=== PATIENT | female | born 1950 | race Caucasian/White ===

== ENCOUNTER → 2017-03-08 | Outpatient (CLI) | payer OTHER ==
[2017-03-08 15:18] LABS: BLOOD UREA NITROGEN 17 mg/dl (7-18); BUN/CREATININE RATIO 19.2 (10-20); CARBON DIOXIDE 25 mmol/L (21-32); CHLORIDE 107 mmol/L (98-107); GLUCOSE 85 mg/dl (70-99); POTASSIUM 4.3 mmol/L (3.5-5.1); SODIUM 139 mmol/L (136-145)
[2017-03-08 15:19] LABS: CALCIUM 9.9 mg/dl (8.5-10.1)
[2017-03-08 15:22] LABS: CHOLESTEROL 187 mg/dl (0-200); CHOLESTEROL/HDL RATIO 4.3; HDL CHOLESTEROL 43 mg/dl; LDL CHOLESTEROL CALCULATED 113 mg/dl; TRIGLYCERIDES 153 mg/dl (0-150); VERY LOW DENSITY LIPOPROT CALC 31 mg/dl
== END | disposition home or self-care (01) ==
LOC: C.LABPVFM 10:25
PROVIDERS: ATTEND Nurse Practitioner
DX: Z13.1 Encounter for screening for diabetes mellitus (principal); Z13.220 Encounter for screening for lipoid disorders; Z11.59 Encounter for screening for other viral diseases

== ENCOUNTER → 2017-07-20 | Outpatient (CLI) | payer OTHER ==
--- NOTE | 2017-07-21 07:50 | MAMMOGRAPHY REPORT ---
BILATERAL DIGITAL SCREENING MAMMOGRAM TOMOSYNTHESIS WITH CAD: 07/20/2017 CLINICAL HISTORY: Routine screening. Patient has no complaints. TECHNIQUE: Breast tomosynthesis in addition to standard 2D mammography was performed. Current study was also evaluated with a Computer Aided Detection (CAD) system. COMPARISON: No prior exams were available for comparison. BREAST COMPOSITION: There are scattered areas of fibroglandular density in both breasts. FINDINGS: No suspicious mass, architectural distortion or cluster of microcalcifications is seen. IMPRESSION: ACR BI-RADS CATEGORY 1: NEGATIVE There is no mammographic evidence of malignancy. Prior outside mammograms are being requested and if obtained, they will be reviewed, compared to the current exam to assess for any more subtle changes, and an addendum will be made to this report. Otherwise a 1 year screening mammogram is recommended. The patient will receive written notification of the results. Approximately 10% of breast cancers are not detected with mammography. A negative mammographic report should not delay biopsy if a clinically suggestive mass is present. Devika Castro M.D. ay/:07/20/2017 16:27:37 [employer] Supervisor: Zayra COLON(Lise)(Wendy), [facility] letter sent: Normal 1/2 BI-RADS Code: ACR BI-RADS Category 1: Negative
== END | disposition home or self-care (01) ==
LOC: C.MAMM 14:30
PROVIDERS: ATTEND Nurse Practitioner
DX: Z12.31 Encounter for screening mammogram for malignant neoplasm of breast (principal)

== ENCOUNTER → 2017-11-14 | Day surgery (SDC) | payer OTHER ==
[2017-11-07 14:48] VITALS: Ht 166.4 cm; Wt 77.3 kg
[~2017-11-14] VITALS: Ht 166.4 cm; Wt 77.3 kg
[~2017-11-14] MED LIST: B-COTAB18 PO; CETI10TA84 PO; CHOL100010 PO; COEN1CAP7 PO; LIDOCAINE HCL 2% 2 ML VIAL (20MG/ML) ONE; MINO100C22 PO; OMEG10007 PO; PROPOFOL IV EMULSION 10 MG/ML 20 ML VIAL IV ONE; SODIUM CHLORIDE 0.9% 500ML 500 ML IV ONE
--- NOTE | 2017-11-14 11:15 | Endo History and Physical ---
History & Physical Date of Service: Nov 14, 2017. Chief Complaint: Screening Referring Physician: Roseline Anthony History of Present Illness 67 yo CF who presents for screening colonoscopy. Past Surgical History Hx Cardiac Surgery: No Hx Internal Defibrillator: No Hx Pacemaker: No Hx Abdominal Surgery: Yes (RINA BSO) Hx of Implantable Prosthesis: No Hx Post-Op Nausea and Vomiting: No Hx Cancer Surgery: No Hx Thoracic Surgery: No Hx Orthopedic: Yes (LUMBAR DISCECTOMY) Hx Urinary Tract Surgery: No Family History IBD Social History Smoking Status: Former Smoker Hx Substance Use: No Hx Alcohol Use: No Allergies Coded Allergies: Adhesives (Verified Allergy, Unknown, SKIN IRRITATION, 11/07/17) Penicillins (Verified Allergy, Unknown, UKNOWN, A CHILD, 11/07/17) Sulfa Antibiotics (Verified Allergy, Unknown, RASH/HIVES, 11/07/17) Current Medications Reported Home Medications Medications Dose Route/Sig Max Daily Dose Days Date Category Coq10 (Coenzyme Q10 (Ubidecarenone)) 200 Mg Cap 1 Cap PO QAM 11/07/17 Reported Zyrtec (Cetirizine HCl) 10 Mg Tab 10 Mg PO QAM 11/07/17 Reported Vitamin D (Cholecalciferol) 1,000 Unit Tab 1 Tab PO Q2D 11/07/17 Reported Vitamin B Complex (B-Complex Vitamins) 1 Tab Tab 1 Tab PO Q2D 11/07/17 Reported [place]-3 (Fish Oil) 1 Ea Cap 2 Cap PO Q2D 11/07/17 Reported Minocin (Minocycline HCl) 100 Mg Cap 100 Mg PO Q2D 11/07/17 Reported Vital Signs Weight (Kilograms): 77.27 Height (Feet): 5 Height (Inches): 5.5 Date Time Temp Pulse Resp B/P (MAP) Pulse Ox O2 Delivery O2 Flow Rate FiO2 11/14/17 10:56 36.5 64 16 132/74 (93) 95 Room Air Physical Exam General Appearance: WD/WN, no apparent distress Respiratory/Chest: Auscultation: breath sounds normal Cardiovascular: Heart Auscultation: RRR Abdomen: Bowel Sounds: normal Inspection & Palpation: soft, non-distended, no tenderness, guarding & rebound Assessment and Plan Assessment: 67 yo CF who presents for screening colonoscopy. Plan: Proceed with colonoscopy.
--- NOTE | 2017-11-14 12:19 | Discharge Instructions ---
Endoscopy Patient Instructions Date / Procedure(s) Performed Nov 14, 2017. Colonoscopy Allergy Information Coded Allergies: Adhesives (Verified Allergy, Unknown, SKIN IRRITATION, 11/07/17) Penicillins (Verified Allergy, Unknown, UKNOWN, A CHILD, 11/07/17) Sulfa Antibiotics (Verified Allergy, Unknown, RASH/HIVES, 11/07/17) Discharge Date / Findings Nov 14, 2017. Rectal polyp Diverticulosis Internal hemorrhoids Medication Instructions OK to resume all medications as prescribed Reported Home Medications Medications Dose Route/Sig Max Daily Dose Days Date Category Coq10 (Coenzyme Q10 (Ubidecarenone)) 200 Mg Cap 1 Cap PO QAM 11/07/17 Reported Zyrtec (Cetirizine HCl) 10 Mg Tab 10 Mg PO QAM 11/07/17 Reported Vitamin D (Cholecalciferol) 1,000 Unit Tab 1 Tab PO Q2D 11/07/17 Reported Vitamin B Complex (B-Complex Vitamins) 1 Tab Tab 1 Tab PO Q2D 11/07/17 Reported [place]-3 (Fish Oil) 1 Ea Cap 2 Cap PO Q2D 11/07/17 Reported Minocin (Minocycline HCl) 100 Mg Cap 100 Mg PO Q2D 11/07/17 Reported Provider Instructions Activity Restrictions - No exercising or heavy lifting for 24 hours. - Do not drink alcohol the day of the procedure. - Do not drive a car or operate machinery until the day after the procedure. - Do not make any important decisions or sign important papers in 24 hours after the procedure. Following Day: - Return to full activity which may include returning to work/school. Diet Start your diet with liquids and light foods (jello, soup, juice, toast). Then eat your usual diet if not nauseated. Treatment For Common After Affects For mild abdominal pain, bloating, or excessive gas: - Rest - Eat lightly - Lie on right side Follow-Up Information Follow-up with Roseline Anthony as scheduled Anesthesia Information What You Should Know You have had a procedure that required some medicine to reduce anxiety and discomfort. This treatment is called moderate sedation. After receiving the treatment, you may be sleepy, but you will be able to breathe on your own. The effects of the treatment may last for several hours. Follow these instructions along with Activity/Diet recommendations noted above: * Do NOT do anything where dizziness or clumsiness would be dangerous. * Rest quietly at home today, then you can be up and about tomorrow. * Have a responsible person stay with you the rest of today. * You may have had an I.V. today. If so, you may take the dressing off later today. Recommendations Call your doctor if: * Trouble breathing * Continuous vomiting for more than 24 hours * Temperature above 101 degrees * Severe abdominal pain or bloating * Pain not relieved by pain medicine ordered * There is increased drainage or redness from any incision * A large amount of rectal bleeding greater than 2-3 tablespoons. (If you had a polyp/s removed or have hemorrhoids, a small amount of blood - from the rectum is to be expected.) * You have any unanswered questions or concerns. IN THE EVENT OF A SERIOUS EMERGENCY, GO TO THE NEAREST EMERGENCY ROOM Your discharge instructions were prepared by provider Gurjit Conde. Patient Instructions Signature Page Shannan Sims Patient (or Guardian) Signature/Date: I have read and understand the instructions given to me by my caregivers. Caregiver/RN/Doctor Signature/Date: The above-named patient and/or guardian has received patient instructions on this date. + Original Patient Signature Page (only) stays with chart. Please make copy for patient.
--- NOTE | 2017-11-14 12:25 | GI REPORT ---
Procedure Date: 11/14/2017 11:26 AM Procedure: Colonoscopy Indications: Screening for colorectal malignant neoplasm Medicines: Monitored Anesthesia Care Complications: No immediate complications. Estimated Blood Loss: Estimated blood loss: none. Procedure: Pre-Anesthesia Assessment: - Prior to the procedure, a History and Physical was performed, and patient medications and allergies were reviewed. The patient's tolerance of previous anesthesia was also reviewed. The risks and benefits of the procedure and the sedation options and risks were discussed with the patient. All questions were answered, and informed consent was obtained. Prior Anticoagulants: The patient has taken no previous anticoagulant or antiplatelet agents. ASA Grade Assessment: II - A patient with mild systemic disease. After reviewing the risks and benefits, the patient was deemed in satisfactory condition to undergo the procedure. After I obtained informed consent, the scope was passed under direct vision. Throughout the procedure, the patient's blood pressure, pulse, and oxygen saturations were monitored continuously. The scope was introduced through the anus and advanced to the cecum, identified by appendiceal orifice and ileocecal valve. The colonoscopy was technically difficult and complex due to significant looping. Successful completion of the procedure was aided by changing the patient to a supine position and using manual pressure. The patient tolerated the procedure well. The quality of the bowel preparation was good. The ileocecal valve and the appendiceal orifice were photographed. Findings: The perianal and digital rectal examinations were normal. A 10 mm polyp was found in the rectum. The polyp was sessile. The polyp was removed with a hot snare. Resection and retrieval were complete. Multiple small-mouthed diverticula were found in the sigmoid colon. Non-bleeding internal hemorrhoids were found during retroflexion. The hemorrhoids were small. Impression: - One 10 mm polyp in the rectum, removed with a hot snare. Resected and retrieved. - Diverticulosis in the sigmoid colon. - Non-bleeding internal hemorrhoids. Recommendation: - Resume previous diet. - Continue present medications. - Repeat colonoscopy for surveillance based on pathology results. - Return to primary care physician as previously scheduled. Gurjit Conde DO 11/14/2017 12:25:06 PM This report has been signed electronically. Note Initiated On: 11/14/2017 11:26 AM I attest to the content of the Intraoperative Record and orders documented therein, exceptions below
[2017-11-14 12:51] VITALS: BP 101/46; PULSE 65; O2SAT 99
--- NOTE | 2017-11-14 13:07 | Anesthesiology Progress Note ---
Anesthesia Post Op Note Date & Time Nov 14, 2017 at 13:07 Vital Signs Pain Intensity: 0 Vital Signs Past 12 Hours Date Time Temp Pulse Resp B/P (MAP) Pulse Ox O2 Delivery O2 Flow Rate FiO2 11/14/17 12:51 65 16 101/46 (64) 99 Room Air 11/14/17 12:36 64 16 110/54 (72) 99 Room Air 11/14/17 12:21 78 16 101/48 (65) 96 Room Air 11/14/17 10:56 36.5 64 16 132/74 (93) 95 Room Air Notes Mental Status: alert / awake / arousable, participated in evaluation Pt Amnestic to Procedure: Yes Nausea / Vomiting: adequately controlled Pain: adequately controlled Airway Patency, RR, SpO2: stable & adequate BP & HR: stable & adequate Hydration State: stable & adequate Anesthetic Complications: no major complications apparent
== END | disposition home or self-care (01) ==
LOC: C.GI 10:30
PROVIDERS: ATTEND Internal Medicine
DX: Z12.11 Encounter for screening for malignant neoplasm of colon (principal); D12.8 Benign neoplasm of rectum; K57.30 Diverticulosis of large intestine without perforation or abscess without bleeding; K64.8 Other hemorrhoids; Z88.0 Allergy status to penicillin; Z88.2 Allergy status to sulfonamides; Z86.73 Personal history of transient ischemic attack (TIA), and cerebral infarction without residual deficits; Z90.710 Acquired absence of both cervix and uterus; Z90.722 Acquired absence of ovaries, bilateral; Z90.79 Acquired absence of other genital organ(s); Z87.891 Personal history of nicotine dependence

== ENCOUNTER 2022-03-30 09:33 | Observation (INO) ==
--- NOTE | 2022-02-18 15:03 | PAT Medication Instructions ---
Medication Instructions Date of Service February 18, 2022 Home Medications Medication Instructions Recorded minocycline 100 mg capsule See Rx Instructions .ROUTE 12/25/21 .COMPLEX #30 capsule omega-3 fatty acids-fish oil 360 mg-1,200 mg capsule (Fish Oil) 2 cap PO Q2D vitamin B complex (B Complex-Vitamin B12) 1 tab PO Q OTHER DAY cholecalciferol (vitamin D3) 125 mcg (5,000 unit) capsule 5,000 units PO .COMPLEX cetirizine 10 mg tablet (Zyrtec) 10 mg PO QAM coenzyme Q10 200 mg capsule 200 mg PO .COMPLEX minocycline 100 mg capsule See Rx Instructions .ROUTE .COMPLEX acetaminophen 500 mg tablet 500 mg PO BID PRN ibuprofen 200 mg tablet (Advil) 200 mg PO BID PRN ASK your surgeon for instructions ibuprofen 200 mg tablet (Advil) 200 mg PO BID PRN STOP taking 2 weeks before surgery (or as soon as possible if surgery is within 2 weeks) omega-3 fatty acids-fish oil 360 mg-1,200 mg capsule (Fish Oil) 2 cap PO Q2D coenzyme Q10 200 mg capsule 200 mg PO .COMPLEX DO NOT take the morning of surgery vitamin B complex (B Complex-Vitamin B12) 1 tab PO Q OTHER DAY cholecalciferol (vitamin D3) 125 mcg (5,000 unit) capsule 5,000 units PO .COMPLEX cetirizine 10 mg tablet (Zyrtec) 10 mg PO QAM Take morning of surgery With a small sip of water, OTHERWISE NOTHING TO EAT OR DRINK AFTER MIDNIGHT: minocycline 100 mg capsule See Rx Instructions .ROUTE .COMPLEX acetaminophen 500 mg tablet 500 mg PO BID PRN (if needed) Take evening before surgery acetaminophen 500 mg tablet 500 mg PO BID PRN (if needed) Other Notes If you have any questions please call us at [phone] or [phone] or [phone] or [phone]
--- NOTE | 2022-02-22 09:16 | Anesthesiology Consultation ---
Date of Service February 22, 2022 Assessment & Plan (1) Encounter for pre-operative examination: - COVID PCR test discussed with pt-she is interested in testing today. If positive, will not need additional pre-op COVID test per policy and if negative- will need pre-op COVID testing 2-4 days prior to surgery. Testing negative, pre- op COVID test will need done. Pt aware. - COVID screening: Per assessment on 02/22/2022: Travel screen negative, no known COVID-19 positive contacts or current COVID-19 related symptoms in past 2 weeks. Pt vaccinated. Surgeon arranging preop COVID testing, scheduled 03/05/2022. Awaiting results. Chart Review Chart Review: Acceptable Risk for Surgery and Patient seen in Pre Admission Testing Teaching & Discussion Pre-Anesthesia Teaching/Discussion Notes: Instructed NPO after midnight before surgery, except medications with 15 cc of water. Medication instructions provided according to the PAT guidelines. History Surgery Operation Date: 03/09/22 10:40 Proposed Procedures p Right Total Knee Arthroplasty - Abraham Hammond MD Height/Weight Height: 5 ft 6 in Weight: 81.6 kg Allergies Allergy/AdvReac Type Severity Reaction Status Date / Time Sulfa (Sulfonamide Allergy Intermediate RASH/HIVES Verified 02/18/22 12:18 Antibiotics) adhesive Allergy Mild SKIN Verified 02/18/22 12:18 IRRITATION Penicillins Allergy Mild UKNOWN, Verified 02/18/22 12:18 A CHILD Medications Home Medications Medication Instructions Recorded Confirmed Last Taken omega-3 fatty acids-fish oil 360 2 cap PO Q2D cap 07/26/19 02/18/22 05/02/21 mg-1,200 mg capsule (Fish Oil) vitamin B complex (B 1 tab PO Q OTHER DAY 07/26/19 02/18/22 05/02/21 Complex-Vitamin B12) cholecalciferol (vitamin D3) 125 5,000 units PO .COMPLEX 07/30/19 02/18/22 05/02/21 mcg (5,000 unit) capsule cetirizine 10 mg tablet (Zyrtec) 10 mg PO QAM tab 11/25/20 02/18/22 05/03/21 coenzyme Q10 200 mg capsule 200 mg PO .COMPLEX 11/25/20 02/18/22 05/02/21 minocycline 100 mg capsule See Rx Instructions .ROUTE 12/25/21 02/18/22 Unknown .COMPLEX #30 capsule acetaminophen 500 mg tablet 500 mg PO BID PRN 02/18/22 02/18/22 Unknown ibuprofen 200 mg tablet (Advil) 200 mg PO BID PRN 02/18/22 02/18/22 Unknown Past Medical History Medical History (Updated 02/22/22 @ 09:39 by Joanna oRjo PA-C) History of COVID-19 12/2021-symptoms were similar to seasonal allergies and self-resolved. 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 Exercise / Class Metabolic Activity III < 4 Walking/Shop/Light housework (denies CP or SOB) Past Family History Family History Grandmother (Paternal) Colorectal cancer Brother Myocardial infarction Grandfather (Maternal) Myocardial infarction Father Diabetes Mother Alzheimer disease Other No family history of adverse response to anesthesia Denies family history of Ovarian cancer Prostate cancer Breast cancer Past Surgical History Surgical History H/O hysterectomy with oophorectomy History of colonoscopy History of laparoscopy History of tonsillectomy History of wisdom tooth extraction Previous back surgery Past Anesthesia History No Hx of Anesthesia Complications and No Family Hx of Anesthesia Complications History of PONV No Hx of PONV and No Hx of Motion Sickness Social History Smoking Status: Never smoker Do You Dip or Chew Tobacco: No Hx Alcohol Use: No Hx Substance Use: No substance use type: does not use Review of Systems Patient denies chest pain, shortness of breath, dyspnea on exertion, snoring, witnessed apneas, reflux, fever, chills, cough, wheezing, or palpitations. Physical Exam Vital Signs Vitals BP 124/78 P 75 TEMP 98.7 SP02 98% on RA RESP 17 Physical Full cervical extension range of motion without pain TMD 3.5 finger breaths Mallampati Score 2 Dentition: intact, several missing teeth, chipped right upper back, several crowns-none in front; denies implants or bridges, loose teeth Lungs: normal respiratory effort. Clear throughout to auscultation, no ad ventitious breath sounds Cardiac: regular rate and rhythm, no murmurs noted Carotid arteries: negative bruit bilat Lab Results Anesthesia Preop Results Results Anesthesia Widget: WBC 6.74 K/uL (4.8-10.8) 02/22/22 Hgb 13.1 g/dL (12.0-16.0) 02/22/22 Hct 38.9 % (37-47) 02/22/22 Plt 462 K/uL (130-400) H 02/22/22 Na 139 mmol/L (136-145) 02/22/22 K 4.4 mmol/L (3.5-5.1) 02/22/22 Cl 105 mmol/L (98-107) 02/22/22 CO2 27 mmol/L (21-32) 02/22/22 BUN 22 mg/dl (6-23) 02/22/22 Creat 0.89 mg/dl (0.6-1.2) 02/22/22 Glucose Level 84 mg/dl (70-99(Fasting)) 02/22/22 PT 10.4 Seconds (9.0-12.0) 02/22/22 PTT 29.8 Seconds (21.0-31.0) 02/22/22 INR 1.0 (0.9-1.1) 02/22/22 Blood Type A Positive 02/22/22 Antibody Screen NEGATIVE 02/22/22 Testing Electrocardiogram Date: 02/22/22 NSR, rate 69 bpm Chest X-Ray Date: 02/22/22 Frontal and lateral radiographs of the chest demonstrate the cardiomediastinal silhouette to be within normal limits. The lungs are clear of alveolar opacities . There is no evidence for effusion bilaterally. There is no evidence for vascular congestion. There is no acute osseous pathology. IMPRESSION: 1. No acute cardiopulmonary disease.
--- NOTE | 2022-03-27 17:20 | History and Physical Report ---
CHIEF COMPLAINT: Right knee pain. HISTORY OF PRESENT ILLNESS: The patient is a 71-year-old female referred by my partner, Dr. Garg for surgical treatment of her right knee. She has got a long history of right knee pain and discomfort describes it has gotten worse over time. She has been through extensive conservative treatment including injections, which have become less successful over time. The last shot helped for about 3-4 weeks and that is it. She describes global pain in her knee. It is increased with weightbearing. She said it is affecting her ability to ambulate, walk and be active. She has been through some therapy, which helped a little bit, but she continues to be limited by pain. She would like to have her knee fixed. She had been previously scheduled, but tested positive for COVID. She has now recovered. She would like to proceed with knee surgery. PAST MEDICAL HISTORY: Significant for: 1. Mini stroke in 1971, on control with some slight residual vision issues only. 2. History of smoking, but quit in 2012. PAST SURGICAL HISTORY: Includes: 1. Hysterectomy. 2. Disk surgery from her back. ALLERGIES: PENICILLIN, REACTION UNKNOWN. ALSO, DESCRIBES ALLERGIES TO SULFA. CURRENT MEDICATIONS: Include: 1. Minocycline. 2. Unspecified Med 3. Fish oil. 4. Zyrtec. 5. Tylenol. SOCIAL HISTORY: A 71-year-old female. Does not smoke. No alcohol intake. FAMILY HISTORY: Noncontributory. REVIEW OF SYSTEMS: Negative for diabetes, neurologic problem, vascular problem, or bleeding disorders. No chest pain or shortness of breath. No history of DVT or PE. PHYSICAL EXAMINATION: GENERAL: Shows a pleasant middle-aged male. Looks to be in pretty good health. HEENT: Benign. NECK: Supple. No lymphadenopathy. LUNGS: Clear to auscultation. HEART: Regular rate and rhythm. ABDOMEN: Soft, nontender, nondistended. EXTREMITIES: Grossly neurovascularly intact except as follows. Examination of the right knee reveals the patient walks with a slightly antalgic gait. She has got fairly neutral to slight varus alignment through her knees. She is tender over the medial joint line. Small knee effusion. Range of motion is 5-125. No instability. Good straight leg raise. X-RAYS: X-rays of the right knee reviewed. It shows advanced right knee medial compartment DJD. She has complete loss of her medial joint space. She has got some chondrocalcinosis and subchondral sclerosis. ASSESSMENT: A 71-year-old female with advanced right knee medial compartment degenerative disk disease and chondrocalcinosis. She has failed conservative treatment. She would like to have her right knee replaced. She does have a history of a transient ischemic attack and mini stroke in the past with minimal symptoms of sensation issues. She has got no known clotting disorders. PLAN: We are going to take her to the operating room and do right total knee replacement. Risks and benefits of this procedure were explained to the patient, include but not limited to DVT, PE, , infection, neurological injury, vascular injury, bleeding problem, pain, limited range of motion, stiffness, failure to relieve symptoms, etc. The patient understands and desires to proceed. Informed consent was obtained. She is planning on being discharged to home using [facility] program. Job ID: [id number] [facility]
[~2022-03-30 09:33] MED LIST changes: +ACETAMINOPHEN 500 MG TAB PO SCH; +ALLERGY Noted to ORDERED Medication SCH; -B-COTAB18 PO; +BUPIVACAINE LIPOSOME/PF 266 MG, BUPIVACAINE/EPINEPHRINE 50 ML, SODIUM CHLORIDE 0.9% 30 ... INFIL SCH; -CETI10TA84 PO; -CHOL100010 PO; -COEN1CAP7 PO; +CeleBREX 200 MG CAP PO SCH; +FAMOTIDINE 20 MG TAB PO SCH; +GABAPENTIN 300 MG CAP PO SCH; -LIDOCAINE HCL 2% 2 ML VIAL (20MG/ML) ONE; +LR 500ML BOLUS, THEN 15ML/HR IV SCH; +LR 60ML/HR IV SCH; +METOCLOPRAMIDE HCL 10 MG TABLET PO SCH; -MINO100C22 PO; -OMEG10007 PO; -PROPOFOL IV EMULSION 10 MG/ML 20 ML VIAL IV ONE; -SODIUM CHLORIDE 0.9% 500ML 500 ML IV ONE; +TRANEXAMIC ACID 1,000 MG **IV Intra-op IV SCH; +ceFAZolin 2000MG 2,000 MG/15 ML SYR IV SCH
[2022-03-30] MEDS ORDERED: BUPIVACAINE 0.25% 30 ML VIAL ONE (11:24)
[2022-03-30] MEDS ORDERED: DEXAMETHASONE SOD INJ 4 MG/ML VIAL ONE ×2 (11:24→13:41)
[2022-03-30] MEDS ORDERED: EPINEPHrine INJ 1 MG/ML AMP ONE (11:24)
[2022-03-30] MEDS ORDERED: BUPIVACAINE 0.5 % 5 MG/1 ML PF 10ML VIAL ONE (11:24)
--- NOTE | 2022-03-30 11:39 | History & Physical Bridge Note ---
Date of Service March 30, 2022 History & Physical Bridge Note I have examined the patient, reviewed the History & Physical and in the interval since the performance of the History & Physical I have noted the following changes of clinical significance: no changes noted
[2022-03-30] MEDS ORDERED: MIDAZOLAM HCL 1 MG/ML 2ML VIAL ONE (12:08)
[2022-03-30] MEDS ORDERED: fentaNYL citrate 100 MCG/2 ML VIAL ONE (12:08)
[2022-03-30] MEDS ORDERED: SODIUM CHLORIDE 0.9% PF 50 ML VIAL ONE (12:34)
[2022-03-30] MEDS ORDERED: BUPIVACAINE/EPINEPHRINE 0.25% 1:200,000 30 ML VIAL ONE (12:34)
[2022-03-30] MEDS ORDERED: BUPIVACAINE LIPOSOME 1.3% 266 MG/20 ML VIAL ONE (12:35)
[2022-03-30] MEDS ORDERED: KETAMINE 50 MG/5 ML SYRINGE ONE (13:33)
[2022-03-30] MEDS ORDERED: ATROPINE SULFATE 0.1 MG/ML 10ML SYR IV PRN (13:38)
[2022-03-30] MEDS ORDERED: ePHEDrine sulfate 50 MG/ML AMP IV PRN (13:38)
[2022-03-30] MEDS ORDERED: fentaNYL citrate 100 MCG/2 ML VIAL IV PRN (13:38)
[2022-03-30] MEDS ORDERED: ONDANSETRON INJ 2 MG/ML 2 ML VIAL IV PRN ×2 (13:38→17:37)
[2022-03-30] MEDS ORDERED: PROPOFOL IV EMULSION 10 MG/ML 20 ML VIAL IV ONE (13:41)
[2022-03-30] MEDS ORDERED: ONDANSETRON INJ 2 MG/ML 2 ML VIAL ONE (13:41)
[2022-03-30] MEDS ORDERED: GLYCOPYRROLATE 0.2 MG/ML VIAL ONE (13:41)
[2022-03-30] MEDS ORDERED: LIDOCAINE 2% MPF LOCAL 5 ML VIAL INFIL ONE (13:41)
[2022-03-30] MEDS ORDERED: PHENYLEPHRINE 100MCG/ML 5ML SYR ONE (14:25)
--- NOTE | 2022-03-30 15:33 | Operative Report ---
PG Post Operative Report Pre & Post Diagnosis Operation Date: 03/30/22 12:30 Pre-Op Diagnosis: Osteoarthrisis knee right. Post-Op Diagnosis: Osteoarthrisis knee right. I identified the patient and participated in the time-out.: Yes Procedure Operation Date: 03/30/22 12:30 Actual Procedures p Right Total Knee Arthroplasty(Right) - Abraham Hammond MD Surgeon Abraham Hammond MD Rn Er Morgan Myers PA-C Estimated Blood Loss 50 Findings Consistent with Post-Op Diagnosis Operative findings were advanced right knee medial compartment DJD with full- thickness cartilage loss and eburnation medial femoral condyle medial tibial plateau. She had very dark staining to the surface of her exposed bone. Specimens Right knee sent for pathology Anesthesia Type Spinal MAC Complications none Disposition Accompanied Patient To Recovery: No Indications Patient is a 71-year-old female is had a fairly long history of right knee pain discomfort describes gotten worse over time. She failed conservative measures. She elected proceed with total knee arthroplasty. Description of Procedure Operative implants consist of: 1 Biomet Vanguard size 62.5 right posterior stabilized femoral component. 2. Biomet size 67 tibial tray. 3. 10 mm posterior stabilized polyethylene insert. 4. 31 x 8 all Paller patella. The patient was taken the operating, identified, placed on the operating table supine position protectors were properly padded. IV antibiotics tried by anesthesia team. Spinal anesthetic and abductor canal block had been applied in the holding area. Mosqueda catheter was placed in sterile fashion. Right Tetrick was then placed in the right lower extremities and prepped and draped in usual sterile fashion. The right leg was elevated exsanguinated with use of an Esmarch and the tourniquet was placed at 300 mmHg. An anterior approach of the right knee was then performed to longitudinal incision centered over the patella. Sharp dissection was carried through subcutaneous tissue down the extensor mechanism. A medial parapatellar arthrotomy incision was made. Some subperiosteal dissection was carried out medially. The fat pad was resected from Neath patella tendon. Lateral patellofemoral ligament was released. Patella subluxated laterally and the knee was flexed. The osteophytes were taken off distal femur. ACL and PCL were then released in the distal femur the tibia subluxated anteriorly. The external tibial alignment jig was then placed in the interface the tibia and adjusted 14 mm medially. Proximal tibial cut was made remove about 2 mm of bone from most deficient aspect medial tibial plateau. The tibia was then sized to a size 67. Attention drawn the femur. The distal femur examined the sharp drop with intramedullary canal was suction. A right 5 degree valgus cutting guide was placed. Distal femoral cutting block was pinned in place. Distal femoral cut was made to take an additional 3 mm bone off distal femur. Femur was then sized to a size 62.5. The AP cutting block was pinned parallel to the epicondylar axis which was 3 degrees of external rotation. The anterior cut, anterior chamfer, posterior cut, posterior chamfer cuts were made. The box cutting guide was placed in just slight lateral box cut was made. The knee was flexed. The remnants of the medial and lateral menisci were excised. The osteophytes were taken off the posterior aspect the femur. Trial femoral component was placed. The tibial tray was pinned in maximum external rotation and the drill and stem punch were used to create defe ct in proximal tibia for the tibial tray. Knee was then trialed and 10 mm insert fit most appropriately. Attention drawn the patella. The patella was cleaned of all soft tissues. Patella thickness measured 20 mm in thickness was cut down to 13. Was sized to a size 31 patella. The lug holes were drilled for the 31 patella. The lateral osteophyte was removed. Patella button was placed. Knee was taken through range of motion and the patella tracked nicely with no thumbs test. Attention drawn to placing permanent components. All trial components were removed. Bone plug was placed in the distal femur limit blood loss. A double batch Palacos G cement was mixed. Biomet Vanguard size 62.5 right posterior stabilized femoral component, size 67 tibial tray, a 10 mm posterior stabilized polyethylene insert, and a 31 x 8 all Paller patella were then cemented in place. The knee was brought out into full extension total cement hardened. A spinal cement check was then performed. Pericapsular tissues were injected with total 100 cc of combination of 23 of Exparel, 30 cc normal saline, 50 cc of quarter percent Marcaine with epinephrine. Patient did receive 1 g tranexamic acid. The tourniquet was then let down for turn time 61 minutes but hemostasis assured use electrocautery. Extensor mechanism closed with combination 1 PDS suture #1 Vicryl suture in a [id number] fashion. Extensor mechanism checked found to be intact the subcutaneous tissue then closed with 2 Dexon suture in a buried interrupted fashion skin was closed skin bell. Leg was then cleaned and dried a sterile dressing was Xeroform, 4 x 4's, sterile cast padding, Miguelangel bandage were applied. Patient then transferred to the recovery room in stable condition. Patient tolerated procedure well and there were no complications. Morgan Myers, my physician guest services assistant, was present for the entire procedure. His assistance was essential and required for appropriate patient positioning, prepping and draping, surgical exposure, performing the technical details of the operation, placement the implants, closure of the wound, and placement of the sterile bandage. I attest to the content of the Intraoperative Record and any orders documented therein. Any exceptions are noted below.
--- NOTE | 2022-03-30 15:57 | XRay Report ---
RIGHT KNEE 2 VIEWS History: Right total knee arthroplasty. Degenerative arthritis. Postop. FINDINGS: The patient is status post a right total knee arthroplasty. The hardware is intact. No frac ture or dislocation. Skin bell are in place. IMPRESSION: Right total knee arthroplasty. No evidence for hardware complication. ACT 112: Negative or not required by law. Electronically signed by: Teo Hussein M.D. 03/30/2022 3:54 PM
--- NOTE | 2022-03-30 16:48 | Anesthesiology Progress Note ---
Date of Service March 30, 2022 Anesthesia Post Procedure Vital Signs Vital Signs: Temp Pulse Resp BP Pulse Ox O2 Del Method O2 Flow Rate 03/30/22 16:45 80 16 106/62 95 Room Air 03/30/22 16:30 83 16 107/53 L 97 Room Air 03/30/22 16:15 85 16 100/67 96 Room Air 03/30/22 16:05 86 16 113/55 L 97 Room Air 03/30/22 15:55 36.6 C 81 16 111/57 L 96 Room Air 03/30/22 15:45 79 16 114/58 L 100 Oxymask 2 03/30/22 15:35 75 18 107/55 L 100 Oxymask 5 03/30/22 15:26 36.8 C 85 18 111/58 L 98 Oxymask 5 03/30/22 10:10 36.8 C 75 20 120/79 96 Room Air Pain Intensity Right Knee: Pain Intensity: 6 Transfer of Care Handoff Completed per policy Notes Mental Status: alert / awake / arousable Patient Amnestic to Procedure: Yes Nausea / Vomiting: adequately controlled Pain: adequately controlled Airway Patency, RR, SpO2: stable & adequate BP & HR: stable & adequate Hydration State: stable & adequate Neuraxial Anesthesia: was administered and sensory block is resolving Anesthetic Complications: no major complications apparent and Pt Satisfied with anesthetic care
[2022-03-30] MEDS ORDERED: NON-FORMULARY MEDICATION (Coenzyme Q10 200 mg capsule) PO SCH (17:37)
[2022-03-30] MEDS ORDERED: [UNRECOGNIZED DRUG - OTHER] PO SCH (17:37)
[2022-03-30] MEDS ORDERED: ALUMINUM/MAGNESIUM SUSP 30 ML UDC PO PRN (17:37)
[2022-03-30] MEDS ORDERED: NALOXONE HCL 0.4 MG/1 ML VIAL/CARP IV PRN (17:37)
[2022-03-30] MEDS ORDERED: DOCUSATE SODIUM/SENNA 50/8.6MG TAB PO PRN (17:37)
[2022-03-30] MEDS ORDERED: CHOLECALCIFEROL 5,000 UNITS 125 MCG TAB PO SCH (17:37)
[2022-03-30] MEDS ORDERED: OMEGA PO SCH (17:37)
[2022-03-30] MEDS ORDERED: METOCLOPRAMIDE HCL INJ 5 MG/ML 2 ML VIAL IV PRN (17:37)
[2022-03-30] MEDS ORDERED: bisacodyL 10 MG SUPP PR PRN (17:37)
[2022-03-30] MEDS ORDERED: oxyCODONE HCL IR 5 MG TAB (IMMEDIATE RELEASE) PO PRN (17:37)
[2022-03-30] MEDS ORDERED: MAGNESIUM HYDROXIDE SUSP 30 ML UDC PO PRN (17:37)
[2022-03-30] MEDS ORDERED: VITAMIN B COMPLEX TAB PO SCH (17:37)
[2022-03-30] MEDS ORDERED: HYDROmorphone INJ 0.5 MG/0.5 ML SYR IV PRN (17:37)
[2022-03-30] MEDS: KETOROLAC TROMETHAMINE 15 MG/ML VIAL IV SCH ×2 (18:42→23:19)
[2022-03-30] MEDS: ASCORBIC ACID 500 MG TAB PO SCH (20:08)
[2022-03-30] MEDS: DOCUSATE SODIUM 100 MG CAP PO SCH (20:09)
[2022-03-30] MEDS: SODIUM CHLORIDE 0.9% 1000ML 1,000 ML IV SCH (20:10)
[2022-03-30] MEDS: ASPIRIN 81 MG ECTAB PO SCH (20:11)
[2022-03-30] MEDS ORDERED: SENNA 8.6 MG TAB PO SCH (21:00)
[2022-03-30] MEDS: ceFAZolin 2000MG 2,000 MG/15 ML SYR IV SCH (21:13)
[2022-03-30] MEDS: ACETAMINOPHEN 500 MG TAB PO SCH (21:13)
[2022-03-30] MEDS ORDERED: TRANEXAMIC ACID / 0.7% NACL 1,000 MG/100 ML BAG IV SCH (21:30)
[2022-03-31] MEDS: SODIUM CHLORIDE 0.9% 1000ML 1,000 ML IV SCH (03:21)
[2022-03-31] MEDS: ceFAZolin 2000MG 2,000 MG/15 ML SYR IV SCH (05:21)
[2022-03-31] MEDS: ACETAMINOPHEN 500 MG TAB PO SCH ×2 (05:21→12:58)
[2022-03-31] MEDS: KETOROLAC TROMETHAMINE 15 MG/ML VIAL IV SCH ×2 (05:22→12:58)
[2022-03-31 06:52] LABS: Hematocrit (blood only) 32.6 % (34.1-44.9); Hemoglobin 11.1 g/dl (12.0-16.0); Mean Corpuscular Hemoglobin 30.7 pg (25.0-34.0); Mean Corpuscular Volume 90.1 fL (80.0-100.0); Mean Platelet Volume 9.4 fL (9.4-12.3); Platelet Count 389 K/uL (130-400); RDW Coefficient of Variation 12.2 % (11.5-14.5); RDW Standard Deviation 40.1 fL (36.4-46.3); Red Blood Count 3.62 M/uL (3.93-5.22); White Blood Count 17.88 K/ul (4.8-10.8)
[2022-03-31 07:13] LABS: BUN Creatinine Ratio 18.6 (10-20); Calcium 8.9 mg/dl (8.5-10.1); Creatinine Clr Calc Pharmacy 55.1 ml/min; Est GFR (African American) 64.5 ml/min; Est GFR (Non-African American) 55.7 ml/min; Potassium 4.3 mmol/L (3.5-5.1)
[2022-03-31] MEDS ORDERED: dexAMETHasone 10 MG in SYRINGE 0 ML IV SCH (08:00)
[2022-03-31] MEDS ORDERED: CETIRIZINE HCL 10 MG TABLET PO SCH (09:00)
[2022-03-31] MEDS ORDERED: MULTIVITAMIN TAB PO SCH (09:00)
[2022-03-31] MEDS: ASCORBIC ACID 500 MG TAB PO SCH (09:17)
[2022-03-31] MEDS: ASPIRIN 81 MG ECTAB PO SCH (09:18)
[2022-03-31] MEDS: DOCUSATE SODIUM 100 MG CAP PO SCH (09:18)
--- NOTE | 2022-03-31 14:48 | Progress Notes ---
DATE OF SERVICE: 03/31/2022 SUBJECTIVE: A 71-year-old female postoperative day 1 from right knee replacement. She is doing pret ty well. Really not much in the way of pain. Therapy went pretty well. She is hoping to go home. OBJECTIVE: VITAL SIGNS: Temperature 36.6. Vital signs are stable. PHYSICAL EXAMINATION: GENERAL: Shows a pleasant, elderly female. Sitting up in her bedside chair, looks comfortable. EXTREMITIES: Examination of the right leg reveals the dressing to be clean, dry and intact. She can dorsiflex and plantarflex her foot appropriately. She is neurologically intact. LABORATORY DATA: Hemoglobin 11.1. Hematocrit 32.6. White cell count 17.8. Electrolytes are stable . ASSESSMENT: A 71-year-old female postoperative day 1 from a right knee replacement, doing pretty wel l. Pain is controlled. She is neurologically intact. PLAN: 1. DVT prophylaxis includes thigh-high TEDs, SCDs, and aspirin twice a day. 2. PT, OT, weightbear as tolerated. Right total knee protocol. 3. Pain control, doing okay with current pain regimen. 4. Disposition: Plan to discharge her home with some home health later today. Job ID: [id number]
== END 2022-03-31 15:20 | disposition home health service (06) ==
LOC: ASU 09:33 → 3E 09:33